=== PATIENT | male | born 1995 | race Caucasian/White ===

== ENCOUNTER 2023-04-09 13:00 | Emergency (ER) | payer OTHER, SELFPAY ==
[2023-04-09 13:05] VITALS: BP 143/95; PULSE 74; RESP 16; TEMP 36.6; O2SAT 98; BMI 29.8
--- NOTE | 2023-04-09 13:17 | CT_ITS ---
The [address] [address] Patient Name: JOSUÉ RECINOS MRN: [id number] date: 1995 Sex: M Assigned Patient Location: ER Current Patient Location: ED.MAIN Accession/Order Number: [id number] Exam Date: 04/09/2023 13:25 Report Date: 04/09/2023 13:54 At the request of: MELANIE STANFORD Procedure: CT head/brain wo con CT head/brain wo con, 04/09/2023 1:25 PM EDT INDICATION: DOUGLASS COMPARISON: There is no appropriate prior study for comparison. TECHNIQUE: Axial CT images of the brain from skull base to vertex, including portions of the face and sinuses, were obtained without contrast . Multiplanar reformatted images were generated and reviewed as needed. Dose reduction techniques were achieved by using automated exposure control and/or adjustment of mA and/or kV according to patient size and/or use of iterative reconstruction technique. FINDINGS: The cerebral sulci as well as ventricular system are appropriate for age. There is no intracranial mass, mass effect, midline shift, intra or extra-axial fluid collection or hemorrhage. The visualized portions of orbits, mastoid air cells as well as paranasal sinuses are unremarkable. There is no suspicious osteolytic or osteoblastic lesion. CT/CT head/brain wo con IMPRESSION: No acute intracranial process is noted. Unremarkable CT of the head. Electronically authenticated by: KYUNG DENNIS Date: 04/09/2023 13:54
--- NOTE | 2023-04-09 13:20 | ED.GENADUL1 ---
HPI - General Adult General Chief complaint: Headache Stated complaint: HEADACHES Time Seen by Provider: 04/09/23 13:09 Source: patient Mode of arrival: walk-in Limitations: no limitations History of Present Illness HPI narrative: [age] sexual male presents for headache. He's been having this intermittently in the right for head for the past two weeks. He does not get frequent headaches. No trauma fever or stiff neck. No localized weakness. He has not had upper respiratory infection symptoms or sore throat or a cough or sinus pressure. The pain is moderate. Related Data Home Medications Medication Instructions Recorded Confirmed duloxetine 30 mg capsule,delayed mg PO 04/09/23 release duloxetine 60 mg capsule,delayed 120 mg PO DAILY 04/09/23 04/09/23 release Previous Rx's Medication Instructions Recorded iubgqkfsbz-akwgjazvwqtxj-bqdcjvex 1 cap PO Q6H PRN pain #20 caps 04/09/23 50 mg-300 mg-40 mg capsule (Fioricet) Allergies Allergy/AdvReac Type Severity Reaction Status Date / Time No Known Drug Allergies Allergy Verified 04/09/23 13:08 Review of Systems ROS Narrative A ten point review of systems is negative except as noted above. PFSH PFSH Social History Smoking status: Never smoker Exam Narrative Exam Narrative: Nurses note and vital signs reviewed and patient is not hypoxic. General: The patient appears well and in no apparent distress. Patient is resting comfortably on cart. Skin: Warm, dry, no pallor noted. There is no rash noted. Head: Normocephalic, atraumatic Eye: Normal conjunctiva, no drainage, EOMI. PERRL Ears, Nose, Mouth, and Throat: oral mucosa is moist. Nares patent. Mouth without vesicles. no pharyngeal erythema. No cervical adenopathy. Neck supple. Cardiovascular: Regular Rate and Rhythm Respiratory: Patient is in no distress, no accessory muscle use, lungs are clear to auscultation, no wheezing, rales or rhonchi Back: non-tender GI: soft and nontender Musculoskeletal: The patient has no evidence of calf tenderness, no pitting edema, symmetrical pulses noted bilaterally Neurological: A&O, normal speech, upper and lower extremity strength five out of five and symmetric Psychiatric: Cooperative Constitutional Vital Signs, click to edit/add: Last Vital Signs Temp 98 F 04/09/23 13:05 Pulse 74 04/09/23 13:05 Resp 16 04/09/23 13:05 BP 143/95 H 04/09/23 13:05 Pulse Ox 98 04/09/23 13:05 O2 Del Method Room Air 04/09/23 13:05 Course Vital Signs Vital signs: Vital Signs Temperature 98 F 04/09/23 13:05 Pulse Rate 74 04/09/23 13:05 Respiratory Rate 16 04/09/23 13:05 Blood Pressure 143/95 H 04/09/23 13:05 Pulse Oximetry 98 04/09/23 13:05 Oxygen Delivery Method Room Air 04/09/23 13:05 Temperature 98 F 04/09/23 13:05 Pulse Rate 74 04/09/23 13:05 Respiratory Rate 16 04/09/23 13:05 Blood Pressure 143/95 H 04/09/23 13:05 Pulse Oximetry 98 04/09/23 13:05 Oxygen Delivery Method Room Air 04/09/23 13:05 Medical Decision Making MDM Narrative Medical decision making narrative: CT brain is negative and he'll be treated symptomatically. He was offered IM injection but doesn't want it. I've no clinical suspicion of meningitis. Treatment diagnosis and follow-up were discussed with the patient. Differential Diagnosis Differential Diagnosis: migraine headache, tension headache, nonspecific headache, intracranial hem Imaging Data CT scan - head: Radiologist's impression: Procedure: CT head/brain wo con CT head/brain wo con, 04/09/2023 1:25 PM EDT INDICATION: DOUGLASS COMPARISON: There is no appropriate prior study for comparison. TECHNIQUE: Axial CT images of the brain from skull base to vertex, including portions of the face and sinuses, were obtained without contrast . Multiplanar reformatted images were generated and reviewed as needed. Dose reduction techniques were achieved by using automated exposure control and/or adjustment of mA and/or kV according to patient size and/or use of iterative reconstruction technique. FINDINGS: The cerebral sulci as well as ventricular system are appropriate for age. There is no intracranial mass, mass effect, midline shift, intra or extra-axial fluid collection or hemorrhage. The visualized portions of orbits, mastoid air cells as well as paranasal sinuses are unremarkable. There is no suspicious osteolytic or osteoblastic lesion. IMPRESSION: No acute intracranial process is noted. Unremarkable CT of the head. Electronically authenticated by: KYUNG DENNIS Date: 04/09/2023 13:54 Discharge Plan Discharge Chief Complaint: Headache Clinical Impression: Headache Patient Disposition: Home, Self-Care Time of Disposition Decision: 14:04 Condition: Good Mode of Transportation: Private Vehicle Prescriptions / Home Meds: New tsyaqyyiax-zaccerlgqcdlk-qdcy [Fioricet] 50-300-40 mg capsule 1 cap PO Q6H PRN (Reason: pain) Qty: 20 0RF No Action duloxetine 30 mg capsule,delayed release(DR/EC) PO duloxetine 60 mg capsule,delayed release(DR/EC) 120 mg PO DAILY Instructions: Acute Headache (ED) Stand Alone Forms: Portal Instructions Referrals: KANU MERCEDES [Physician] - 1 week
== END 2023-04-09 14:12 | disposition home or self-care (01) ==
PROVIDERS: Emergency Provider Emergency Medicine
DX: R51.9 Headache, unspecified (principal); Z79.899 Other long term (current) drug therapy
CPT/HCPCS: 70450; 99284